=== PATIENT | male | born 1980 | race Caucasian/White ===

== ENCOUNTER → 2017-02-25 17:03 | Outpatient (CLI) | payer OTHER ==
[~2017-02-25 17:03] MED LIST: CROMOLYN SODIUM10 ML OP; ZYRTEC10 MG PO
== END | disposition home or self-care (01) ==
LOC: PPHC 17:03
DX: I10 Essential (primary) hypertension (principal)

== ENCOUNTER 2018-04-01 07:41 | Outpatient (CLI) | payer OTHER | END 2018-04-01 15:00 | disposition home or self-care (01) | LOC: LAB 07:41 | DX: J02.8 Acute pharyngitis due to other specified organisms (principal) ==

== ENCOUNTER → 2019-03-18 06:34 | Outpatient (CLI) | payer OTHER | END | disposition home or self-care (01) | LOC: LAB 06:34 | DX: I10 Essential (primary) hypertension (principal); E11.9 Type 2 diabetes mellitus without complications; E03.8 Other specified hypothyroidism ==

== ENCOUNTER → 2019-12-01 13:00 | Outpatient (CLI) | payer OTHER | END | disposition home or self-care (01) | LOC: PPH VACUNA 13:00 | DX: Z23 Encounter for immunization (principal) ==

== ENCOUNTER 2020-02-15 08:00 | Outpatient (CLI) | payer OTHER | END 2020-02-15 18:50 | disposition home or self-care (01) | LOC: PPH VACUNA 08:00 | DX: Z23 Encounter for immunization (principal) ==

== ENCOUNTER → 2020-08-09 06:49 | Outpatient (CLI) | payer OTHER | END | disposition home or self-care (01) | LOC: LAB 06:49 | PROVIDERS: ATTEND Internal Medicine Cardiovascular Disease | DX: I10 Essential (primary) hypertension (principal); E66.3 Overweight; R06.00 Dyspnea, unspecified ==

== ENCOUNTER 2020-11-22 08:00 | Outpatient (CLI) | payer OTHER | END 2020-11-22 08:30 | disposition home or self-care (01) | LOC: PPH VACUNA 08:00 | PROVIDERS: ATTEND Emergency Medicine Pediatric Emergency Medicine | DX: Z23 Encounter for immunization (principal) ==

== ENCOUNTER 2021-02-20 08:14 | Emergency (ER) | payer OTHER ==
[~2021-02-20] VITALS: Ht 177.8 cm; Wt 78.5 kg
[2021-02-20] MEDS ORDERED: VASOTEC5 MG PO (08:40)
== END 2021-02-20 12:06 | disposition home or self-care (01) ==
LOC: ER 08:14
DX: U07.1 COVID-19 (principal); I10 Essential (primary) hypertension

== ENCOUNTER 2021-11-08 14:37 | Outpatient (CLI) | payer OTHER ==
[~2021-11-08 14:37] MED LIST changes: +VASOTEC5 MG PO
== END 2021-11-08 14:42 | disposition home or self-care (01) ==
LOC: PPH VACUNA 14:37
PROVIDERS: ATTEND Emergency Medicine Pediatric Emergency Medicine
DX: Z23 Encounter for immunization (principal)